=== PATIENT | male | born 1955 | race Asian ===

== ENCOUNTER 2021-12-11 17:21 | Emergency (ER) | payer OTHER ==
[~2021-12-11] VITALS: Ht 157.5 cm; Wt 92.5 kg
[2021-12-11 17:26] VITALS: BP 161/91
[2021-12-11] MEDS ORDERED: KETOROLAC 60 MG/2 ML VIAL IM ONE (17:45)
[2021-12-11] MEDS ORDERED: HYDROcodone/APAP 5/325 MG 1 TAB TAB PO ONE (19:25)
[2021-12-11] MEDS ORDERED: IBUP-2213 PO (19:53)
[2021-12-11] MEDS ORDERED: ACET-10509 PO (19:53)
[2021-12-11 20:00] VITALS: BP 150/89
--- NOTE | 2021-12-11 20:00 | NUR ---
Patient discharged with v/s stable. Written and verbal after care instructions given and explained. Patient alert, oriented and verbalized understanding of instructions. Ambulatory with steady gait. All questions addressed prior to discharge. ID band removed. Patient advised to follow up with PMD. Rx of MOTRIN AND TYLENOL given. Patient educated on indication of medication including possible reaction and side effects. Opportunity to ask questions provided and answered.
== END 2021-12-11 20:00 | disposition home or self-care (01) ==
LOC: MED 17:21
DX: M54.42 Lumbago with sciatica, left side (principal); I10 Essential (primary) hypertension; Z79.899 Other long term (current) drug therapy
CPT/HCPCS: 71045; 72110; 93005; 96372; 99284; J1885; 99283